=== PATIENT | male | born 1940 | race Caucasian/White ===

== ENCOUNTER 2016-08-13 15:01 | Emergency (ER) | payer OTHER ==
[~2016-08-13 15:01] MED LIST: ACYCLOVIR200 MG PO; ASPIRIN ADULT L81 M1 PO; HYDROCHLOROTHIA25 MG PO; LIPITOR40 MG PO; LISINOPRIL10 MG PO; METOPROLOL TART25 MG PO; OMEPRAZOLE20 M1; PROBENECID500 MG PO; RANITIDINE HCL150 MG PO
--- NOTE | 2016-08-13 15:27 | ED CLINICAL REPORT ---
Clinical Report - Physicians/Mid Levels [facility] [address] [place] [address] 08/13/2016 15:02 [id number] Time Seen: 15:19; initial patient contact, initial documentation, patient care assumed. Arrived- By private vehicle. Historian- patient. HISTORY OF PRESENT ILLNESS Chief Complaint: Injury to the right hand. The injury happened just prior to arrival. Occurred at home. The patient sustained a laceration from a sharp edge (electrical cord). Patient is not experiencing pain. Patient denies injury to the head or neck. No other injury. REVIEW OF SYSTEMS The patient sustained a laceration. No swelling, tingling, numbness, weakness or foreign body. All systems otherwise negative, except as recorded above. PAST HISTORY See nurses notes. PROBLEMS: Fractured Phalanx (Finger). Hypertension. --15:14 Jenny Rivas R.N. Angina [RuleOut]. --15:14 Jenny Rivas R.N. SOCIAL HISTORY Former smoker. No alcohol use or drug use. No recent travel. Is a local resident. FAMILY HISTORY No significant family medical history. ADDITIONAL NOTES The nursing notes have been reviewed with agreement regarding the chief complaint, HPI, ROS, PMH and patient medications and allergies. PHYSICAL EXAM Vital Signs: 08/13/2016 15:05 BP: 110/60. HR: 66. RR: 18. O2 saturation: 96%. Temp: 98.1 F. Pain level now: 0/10. Have been reviewed as normal and appear to be correct. Appearance: Alert. Oriented X3. No acute distress. Head: Head atraumatic. Eyes: Pupils equal, round and reactive to light. Eyes normal inspection. Respiratory: No respiratory distress. Skin: Skin warm and dry. Skin intact. Extremities: Hand injury present. Right thumb-index finger web space: superficial 0.5 cm laceration. Neurovascular intact distally. (superficial flap lac, no active bleeding, no closure needed). No erythema, tenderness, swelling, abrasion or ecchymosis. No puncture wound, foreign body or deformity. No limitation in movement. No wrist injury. Hand and wrist exam otherwise negative. Extremities otherwise negative. Neuro, Vascular and Tendons: Vascular status intact. Sensation intact. Motor intact. Tendon function intact. Neuro: Oriented X 3. No motor deficit. No sensory deficit. Note: isolated injury to hand. PROGRESS AND PROCEDURES Patient counseled in person regarding the patient's stable condition and diagnosis. 15:27. Differential Diagnosis: Other possible considerations: hand lac, avulsion, fb. Above considerations are based on history and physical exam. Differential diagnosis was discussed with patient. Disposition: Discharged home in good and improved condition (15:27). Condition: good and stable. CLINICAL IMPRESSION Single superficial laceration to the right hand.Treatment of laceration not delayed. No infection or foreign body present. INSTRUCTIONS Protect wound and keep wound area clean. Soak in warm soapy water twice daily. Apply bacitracin twice daily. Warnings: TETANUS: You were given a tetanus shot during your visit. Make a note for future reference. GENERAL WARNINGS: Return or contact your physician immediately if your condition worsens or changes unexpectedly, if not improving as expected, or if other problems arise. Specifically return if problem worsens. Follow-up: Follow up with your doctor in about three days as needed and for wound check. Call for an appointment. Summary of care provided to patient. Understanding of the discharge instructions verbalized by patient. (Electronically signed by Paula Rader A.R.N.P. 08/13/2016 17:34)
--- NOTE | 2016-08-13 15:27 | ED CLINICAL REPORT ---
Clinical Report - Physicians/Mid Levels [facility] [address] [place] [address] 08/13/2016 15:02 [id number] Time Seen: 15:19; initial patient contact, initial documentation, patient care assumed. Arrived- By private vehicle. Historian- patient. HISTORY OF PRESENT ILLNESS Chief Complaint: Injury to the right hand. The injury happened just prior to arrival. Occurred at home. The patient sustained a laceration from a sharp edge (electrical cord). Patient is not experiencing pain. Patient denies injury to the head or neck. No other injury. REVIEW OF SYSTEMS The patient sustained a laceration. No swelling, tingling, numbness, weakness or foreign body. All systems otherwise negative, except as recorded above. PAST HISTORY See nurses notes. PROBLEMS: Fractured Phalanx (Finger). Hypertension. --15:14 Jenny Rivas R.N. Angina [RuleOut]. --15:14 Jenny Rivas R.N. SOCIAL HISTORY Former smoker. No alcohol use or drug use. No recent travel. Is a local resident. FAMILY HISTORY No significant family medical history. ADDITIONAL NOTES The nursing notes have been reviewed with agreement regarding the chief complaint, HPI, ROS, PMH and patient medications and allergies. PHYSICAL EXAM Vital Signs: 08/13/2016 15:05 BP: 110/60. HR: 66. RR: 18. O2 saturation: 96%. Temp: 98.1 F. Pain level now: 0/10. Have been reviewed as normal and appear to be correct. Appearance: Alert. Oriented X3. No acute distress. Head: Head atraumatic. Eyes: Pupils equal, round and reactive to light. Eyes normal inspection. Respiratory: No respiratory distress. Skin: Skin warm and dry. Skin intact. Extremities: Hand injury present. Right thumb-index finger web space: superficial 0.5 cm laceration. Neurovascular intact distally. (superficial flap lac, no active bleeding, no closure needed). No erythema, tenderness, swelling, abrasion or ecchymosis. No puncture wound, foreign body or deformity. No limitation in movement. No wrist injury. Hand and wrist exam otherwise negative. Extremities otherwise negative. Neuro, Vascular and Tendons: Vascular status intact. Sensation intact. Motor intact. Tendon function intact. Neuro: Oriented X 3. No motor deficit. No sensory deficit. Note: isolated injury to hand. PROGRESS AND PROCEDURES Patient counseled in person regarding the patient's stable condition and diagnosis. 15:27. Differential Diagnosis: Other possible considerations: hand lac, avulsion, fb. Above considerations are based on history and physical exam. Differential diagnosis was discussed with patient. Disposition: Discharged home in good and improved condition (15:27). Condition: good and stable. CLINICAL IMPRESSION Single superficial laceration to the right hand.Treatment of laceration not delayed. No infection or foreign body present. INSTRUCTIONS Protect wound and keep wound area clean. Soak in warm soapy water twice daily. Apply bacitracin twice daily. Warnings: TETANUS: You were given a tetanus shot during your visit. Make a note for future reference. GENERAL WARNINGS: Return or contact your physician immediately if your condition worsens or changes unexpectedly, if not improving as expected, or if other problems arise. Specifically return if problem worsens. Follow-up: Follow up with your doctor in about three days as needed and for wound check. Call for an appointment. Summary of care provided to patient. Understanding of the discharge instructions verbalized by patient. (Electronically signed by Paula Rader A.R.N.P. 08/13/2016 17:34)
--- NOTE | 2016-08-13 15:27 | ED ORDER SUMMARY ---
..... Patient: ISACC SCOTT OrderSheet [facility] VisitID: [id number] [address] [place] [address] 76y, M Registration Date/Time: 08/13/2016 ORDER SHEET Weight: 67.1 kg (stated) Allergies: No Known Drug Allergy GENERAL ORDERS: MEDICATION ORDERS: Ptyijmo-Jpxnyp-Fuxyc Pertussis IM 0.5 mL (NOW, per protocol) (15:24 08/13/2016 DDean R.N. per protocol) (15:26 DDean R.N.) IV FLUIDS: ORDER SHEET NOTES: [Electronically signed by Jenny Rivas R.N. (16:03 08/13/2016)] [Electronically signed by Paula Rader (17:34 08/13/2016)] [Electronically locked/signed by Jenny Rivas R.N. (16:03 08/13/2016)]
--- NOTE | 2016-08-13 15:27 | ED NURSING NOTES ---
Clinical Report - Nurses [facility] [address] [place] [address] 08/13/2016 15:02 [id number] TRI[facility] Triage time 1505. Acuity: LEVEL 4. Chief Complaint: INJURY TO RIGHT HAND. KENNY COMA SCORE: [place] Coma Scale: 15- eyes open spontaneously (4); best verbal response- oriented x 4 (5); best motor response- obeys commands (6). --15:15 Jenny Rivas R.N. 15:05 08/13/16. BP: 110/60. HR: 66. RR: 18. O2 saturation: 96%. Temp: 98.1 F. Pain level now: 0/10. --15:15 Jenny Rivas R.N. Weight: 67.1 kg stated. Height/Length: 70 inches Per Patient. BMI: 21.2. --15:11 Jenny Rivas R.N. Medications Aspirin Oral (Tablet Chewable 81 mg) 1 tablet. Atorvastatin Calcium Oral. Hydrochlorothiazide Oral 25 mg, daily. Imdur Oral. Isosorbide Mononitrate ER Oral 30 mg, daily. Lisinopril Oral 40 mg, daily. Metoclopramide HCl Oral 25 mg, 2x a day. Nitroglycerin Translingual (Solution 0.4 mg/spray), as needed. Probenecid Oral (Tablet 500 mg) 1 tablet, 2x a day. Ranitidine HCl Oral 150 mg, daily. --16:03 Jenny Rivas R.N. Allergies No Known Drug Allergy. --15:12 Jenny Rivas R.N. History Arrived by private vehicle. Historian: patient. Unaccompanied. Primary physician (scott). This occurred just prior to arrival. He sustained a laceration (from electrical cord). ( pt has 1/2 cm flap lac to soft tissue/webbing between thumb and index finger on rt hand). PAST MEDICAL HX: Tetanus status: unknown. SURGERY HX: Right hip surgery. SOCIAL HX: Smoker- current status unknown (quit 30 years ago , was a 1ppd smoker for 10 years). --15:15 Jenny Rivas R.N. PROBLEMS: Fractured Phalanx (Finger). Hypertension. --15:14 Jenny Rivas R.N. Angina [RuleOut]. --15:14 Jenny Rivas R.N. Interventions ID band on patient. To treatment room. --15:15 Jenny Rivas R.N. PHYSICAL ASSESSMENT 15:05. Ambulatory to room. GENERAL / NEURO / PSYCH: Oriented X 4. Alert. Appears in no acute distress. EXTREMITIES: Capillary refill is less than 2 seconds in the extremities. Extremity pulses are within normal limits. Extremities exhibit normal ROM. Neuro-vascular status intact to the extremity. Right hand web space: superficial 0.5 cm laceration with controlled bleeding (wound betweel thumb and index finger on webbing of hand). SKIN: Skin intact. Skin is warm and dry. --16:02 Jenny Rivas R.N. NURSING PROGRESS NOTES 15:05. Reassurance given. Patient identifiers checked. Call light placed in reach. Side rails up. Bed placed in lowest position. Patient ready for evaluation- chart flagged. --15:16 Jenny Rivas R.N. 15:19 08/13/2016 [id number] PERTUSSIS IM 0.5 mL given. (Lot#: [id number], expiration date: 02/05/2018, Corporate Safety Coordinator: [employer]). Given in the right deltoid. Vaccine information statement provided to the patient. --15:26 Jenny Rivas R.N. 15:25. ( ERNP in to evaluate pt, after talking w pt, it was agreed that he could go home and put own 'waterproof dressing' on wound). --15:36 Jenny Rivas R.N. DISPOSITION / DISCHARGE 15:30. Condition at departure: unchanged and stable. No learning barriers present. Discharge instructions provided and reviewed with the patient. Reviewed medication(s) (tylenol or motin as needed). Reviewed wound care instructions. Patient verbalized understanding. Written instructions provided in German. The patient was discharged home and unaccompanied at time of discharge. He left the Emergency Department ambulatory and via private vehicle. Patient driving. --15:37 Jenny Rivas R.N. 15:26 08/13/16. BP: deferred. HR: deferred. RR: deferred. O2 saturation: deferred. Temp: deferred. Pain level now: 0/10. --15:37 Jenny Rivas R.N. Locked/Released at 08/13/2016 16:03 by Jenny Rivas R.N.
--- NOTE | 2016-08-13 15:27 | ED ORDER SUMMARY ---
..... Patient: ISACC SCOTT OrderSheet [facility] VisitID: [id number] [address] [place] [address] 76y, M Registration Date/Time: 08/13/2016 ORDER SHEET Weight: 67.1 kg (stated) Allergies: No Known Drug Allergy GENERAL ORDERS: MEDICATION ORDERS: Qkcrupr-Kbrrev-Cnooz Pertussis IM 0.5 mL (NOW, per protocol) (15:24 08/13/2016 DDean R.N. per protocol) (15:26 DDean R.N.) IV FLUIDS: ORDER SHEET NOTES: [Electronically signed by Jenny Rivas R.N. (16:03 08/13/2016)] [Electronically signed by Paula Rader (17:34 08/13/2016)] [Electronically locked/signed by Jenny Rivas R.N. (16:03 08/13/2016)]
--- NOTE | 2016-08-13 15:27 | ED NURSING NOTES ---
Clinical Report - Nurses [facility] [address] [place] [address] 08/13/2016 15:02 [id number] TRI[facility] Triage time 1505. Acuity: LEVEL 4. Chief Complaint: INJURY TO RIGHT HAND. KENNY COMA SCORE: [place] Coma Scale: 15- eyes open spontaneously (4); best verbal response- oriented x 4 (5); best motor response- obeys commands (6). --15:15 Jenny Rivas R.N. 15:05 08/13/16. BP: 110/60. HR: 66. RR: 18. O2 saturation: 96%. Temp: 98.1 F. Pain level now: 0/10. --15:15 Jenny Rivas R.N. Weight: 67.1 kg stated. Height/Length: 70 inches Per Patient. BMI: 21.2. --15:11 Jenny Rivas R.N. Medications Aspirin Oral (Tablet Chewable 81 mg) 1 tablet. Atorvastatin Calcium Oral. Hydrochlorothiazide Oral 25 mg, daily. Imdur Oral. Isosorbide Mononitrate ER Oral 30 mg, daily. Lisinopril Oral 40 mg, daily. Metoclopramide HCl Oral 25 mg, 2x a day. Nitroglycerin Translingual (Solution 0.4 mg/spray), as needed. Probenecid Oral (Tablet 500 mg) 1 tablet, 2x a day. Ranitidine HCl Oral 150 mg, daily. --16:03 Jenny Rivas R.N. Allergies No Known Drug Allergy. --15:12 Jenny Rivas R.N. History Arrived by private vehicle. Historian: patient. Unaccompanied. Primary physician (scott). This occurred just prior to arrival. He sustained a laceration (from electrical cord). ( pt has 1/2 cm flap lac to soft tissue/webbing between thumb and index finger on rt hand). PAST MEDICAL HX: Tetanus status: unknown. SURGERY HX: Right hip surgery. SOCIAL HX: Smoker- current status unknown (quit 30 years ago , was a 1ppd smoker for 10 years). --15:15 Jenny Rivas R.N. PROBLEMS: Fractured Phalanx (Finger). Hypertension. --15:14 Jenny Rivas R.N. Angina [RuleOut]. --15:14 Jenny Rivas R.N. Interventions ID band on patient. To treatment room. --15:15 Jenny Rivas R.N. PHYSICAL ASSESSMENT 15:05. Ambulatory to room. GENERAL / NEURO / PSYCH: Oriented X 4. Alert. Appears in no acute distress. EXTREMITIES: Capillary refill is less than 2 seconds in the extremities. Extremity pulses are within normal limits. Extremities exhibit normal ROM. Neuro-vascular status intact to the extremity. Right hand web space: superficial 0.5 cm laceration with controlled bleeding (wound betweel thumb and index finger on webbing of hand). SKIN: Skin intact. Skin is warm and dry. --16:02 Jenny Rivas R.N. NURSING PROGRESS NOTES 15:05. Reassurance given. Patient identifiers checked. Call light placed in reach. Side rails up. Bed placed in lowest position. Patient ready for evaluation- chart flagged. --15:16 Jenny Rivas R.N. 15:19 08/13/2016 [id number] PERTUSSIS IM 0.5 mL given. (Lot#: [id number], expiration date: 02/05/2018, [employer]communications Support: [employer]). Given in the right deltoid. Vaccine information statement provided to the patient. --15:26 Jenny Rivas R.N. 15:25. ( ERNP in to evaluate pt, after talking w pt, it was agreed that he could go home and put own 'waterproof dressing' on wound). --15:36 Jenny Rivas R.N. DISPOSITION / DISCHARGE 15:30. Condition at departure: unchanged and stable. No learning barriers present. Discharge instructions provided and reviewed with the patient. Reviewed medication(s) (tylenol or motin as needed). Reviewed wound care instructions. Patient verbalized understanding. Written instructions provided in [place]ian. The patient was discharged home and unaccompanied at time of discharge. He left the Emergency Department ambulatory and via private vehicle. Patient driving. --15:37 Jenny Rivas R.N. 15:26 08/13/16. BP: deferred. HR: deferred. RR: deferred. O2 saturation: deferred. Temp: deferred. Pain level now: 0/10. --15:37 Jenny Rivas R.N. Locked/Released at 08/13/2016 16:03 by Jenny Rivas R.N.
--- NOTE | 2016-08-13 17:35 | ED DISCHARGE INSTRUCTIONS ---
Patient: ISACC SCOTT General Instructions [facility] VisitID: [id number] [place] [address] 76y, M Registration Date/Time: 08/13/2016 Single superficial laceration to the right hand.Treatment of laceration not delayed. No infection or foreign body present. INSTRUCTIONS Protect wound and keep wound area clean. Soak in warm soapy water twice daily. Apply bacitracin twice daily. Warnings: TETANUS: You were given a tetanus shot during your visit. Make a note for future reference. GENERAL WARNINGS: Return or contact your physician immediately if your condition worsens or changes unexpectedly, if not improving as expected, or if other problems arise. Specifically return if problem worsens. Follow-up: Follow up with your doctor in about three days as needed and for wound check. Call for an appointment. Summary of care provided to patient. Understanding of the discharge instructions verbalized by patient. ADDITIONAL INFORMATION Laceration (All Closures) Alaceration is a cut through the skin. This will usually require stitches (sutures) or ruth ann if it is deep. Minor cuts may be treated with a surgical tape closure orskin glue. Home care The following guidelines will help you care for your laceration at home: Extremity, face, or trunk wounds Keep the wound clean and dry. If a bandage was applied and it becomes wet or dirty, replace it. Otherwise, leave it in place for the first 24 hours. If stitches or ruth ann were used, clean the wound daily. After removing the bandage, wash the area with soap and water. Use a wet cotton swab to loosen and remove any blood or crust that forms. The doctor may prescribe an antibiotic cream or ointment to prevent infection. Do not stop taking this medication until you have finished the prescribed course or the doctor tells you to stop. The doctor may also prescribe medications for pain. Follow the doctors instructions for taking these medications. You may remove the bandage to shower as usual after the first 24 hours, but do not soak the area in water (no swimming) until the stitches or ruth ann are removed. If surgical tape was used, keep the area clean and dry. If it becomes wet, blot it dry with a towel. If skin glue was used, do not scratch, rub, or pick at the adhesive film. Do not place tape directly over the film. Do not apply liquid, ointment, or creams to the wound while the film is in place. Do not clean the wound with peroxide and do not apply ointments. Avoid activities that cause heavy sweating until the film has fallen off. Protect the wound from prolonged exposure to sunlight or tanning lamps. You may shower as usual but do not soak the wound in water (no baths or swimming). The film will fall off by itself in 510 days. Scalp wounds During the first two days, you may carefully rinse your hair in the shower to remove blood, glass or dirt particles. After two days, you may shower and shampoo your hair normally. Do not soak your scalp in the tub or go swimming until the stitches or ruth ann have been removed. Talk with your doctor before applying any antibiotic ointment to the wound. Mouth wounds Eat soft foods to reduce pain. If the cut is inside of your mouth, clean by rinsing after each meal and at bedtime with a mixture of equal parts water and hydrogen peroxide (do not swallow!). Or, you can use a cotton swab to directly apply hydrogen peroxide onto the cut. Mouth wounds can be painful when eating. You may use an fizc-ciu-vdapfar local numbing solution for pain relief. If this is not available, you may use any numbing solution for teething babies. You may apply this directly to the sores with a cotton-tip swab or with your finger. Follow-up care Follow up with your health care provider. Most skin wounds heal within ten days. Mouth and facial wounds heal within five days. However, even with proper treatment, a wound infection may sometimes occur. Therefore, you should check the wound daily for signs of infection listed below. Stitches should be removed from the face within five days; stitches and ruth ann should be removed from other parts of the body within 714 days. If dissolving stitches were used in the mouth, these will fall out or dissolve without the need for removal. If tape closures were used, remove them yourself if they have not fallen off after 7 days. Ifskin glue was used, the film will fall off by itself in 510 days. When to seek medical care Get prompt medical attention if any of these occur: Bleeding not controlled by direct pressure Signs of infection, including increasing pain in the wound, increasing wound redness or swelling, or pus coming from the wound Fever of 100.4F (38C) or higher, or as directed by your health care provider Stitches or ruth ann come apart or fall out or surgical tape falls off before 7 days Wound edges re-open Laceration, Extremity (Sutures, [place], Or Tape) A laceration is a cut through the skin. This will usually require stitches (sutures) or ruth ann if it is deep. Minor cuts may be treated with surgical tape closures. Home care The following guidelines will help you care for your laceration at home: Keep the wound clean and dry. If a bandage was applied and it becomes wet or dirty, replace it. Otherwise, leave it in place for the first 24 hours, then change it once a day or as directed. If stitches or ruth ann were used, clean the wound daily: After removing the bandage, wash the area with soap and water. Use a wet cotton swab to loosen and remove any blood or crust that forms. After cleaning, keep the wound clean and dry. Talk with your doctor before applying any antibiotic ointment to the wound. Reapply the bandage. You may remove the bandage to shower as usual after the first 24 hours, but do not soak the area in water (no swimming) until the stitches or ruth ann are removed. If surgical tape closures were used, keep the area clean and dry. If it becomes wet, blot it dry with a towel. The doctor may prescribe an antibiotic cream or ointment to prevent infection. Do not stop taking this medication until you have finished the prescribed course or the doctor tells you to stop. The doctor may also prescribe medications for pain. Follow the doctors instructions for taking these medications. If you have chronic liver or kidney disease or ever had a stomach ulcer or GI bleeding, talk with your doctor before using these medicines. Follow-up care Follow up with your health care provider. Most skin wounds heal within ten days. However, an infection may sometimes occur despite proper treatment. Therefore, check the wound daily for the signs of infection listed below. Stitches and ruth ann should be removed within 714 days. If surgical tape closures were used, you may remove them after 10 days, if they have not fallen off by then. Notify your doctor if you notice persistent numbness or weakness in the injured extremity. (Note:A radiologist will review any X-rays that were taken. We will notify you of any new findings that may affect your care.) When to seek medical care Get prompt medical attention if any of these occur: Increasing pain in the wound Redness, swelling, or pus coming from the wound Fever of 100.4F (38C) or higher, or as directed by your health care provider If stitches or ruth ann come apart or fall out before your next appointment If the surgical tape closures fall off within seven days, or the wound edges re-open Bleeding not controlled by direct pressure Diphtheria Toxoid Adsorbed, Pertussis Vaccine, Acellular (Adsorbed), Tetanus Toxoid, Adsorbed Suspension for injection What is this medicine? DIPHTHERIA and TETANUS TOXOIDS; PERTUSSIS VACCINE (dif THEER ee uh and TET n us TOK soids; per TUS iss deshaunk SEEN) is used to prevent diphtheria, tetanus, and pertussis infections. How should I use this medicine? This vaccine is for injection into a muscle. It is given by a health certified social workers in health care. A copy of Vaccine Information Statements will be given before each vaccination. Read this sheet carefully each time. The sheet may change frequently. Talk to your occupational health specialist regarding the use of this vaccine in children. While the DTP vaccine may be given to children ages 6 weeks to 7 years and the Tdap vaccine may be given to children at least 10 years old, precautions do apply. What side effects may I notice from receiving this medicine? Side effects that you should report to your doctor or health certified social workers in health care as soon as possible: allergic reactions like skin rash, itching or hives, swelling of the face, lips, or tongue breathing problems fever of 103 degrees F or more flu-like symptoms inconsolable crying infection pain, tingling, numbness in the hands or feet seizures swelling of arm or leg that was injected unusually weak or tired Side effects that usually do not require immediate medical attention (report these side effects to your doctor or health certified social workers in health care if they continue or are bothersome): fussy, irritable loss of appetite fever of 102 degrees F or less pain, tenderness, redness, swelling, or a 'knot' at site where injected vomiting What may interact with this medicine? immune globulin medicines that suppress your immune function like adalimumab, anakinra, infliximab medicines to treat cancer medicines that treat or prevent blood clots like warfarin, enoxaparin, and dalteparin steroid medicines like prednisone or cortisone What if I miss a dose? It is important not to miss your dose. Call your doctor or health certified social workers in health care if you are unable to keep an appointment. Where should I keep my medicine? This drug is given in a hospital or clinic and will not be stored at home. What should I tell my health care provider before I take this medicine? They need to know if you have any of these conditions: blood disorders like hemophilia fever or infection immune system problems neurologic disease seizures an unusual or allergic reaction to vaccines, thimerosal, latex, other medicines, foods, dyes, or preservatives or trying to get breast-feeding What should I watch for while using this medicine? See your health care provider for all shots of this vaccine as directed. To have protection from infection, you must have 3 shots of this vaccine plus boosters as needed. Tell your doctor right away if you have any serious or unusual side effects after getting this vaccine. You have been given the following additional information: Laceration, All Laceration, Extrem (Suture, Staple, Or Tape) Diphtheria Toxoid Adsorbed, Pertussis Vaccine, Acellular (Adsorbed), Tetanus Toxoid, Adsorbed Suspension for injection (Electronically signed by Paula Rader A.R.N.P. 08/13/2016 17:34)
--- NOTE | 2016-08-13 17:35 | ED MAR SUMMARY ---
..... Medication Administration Record [facility] [address] [place] [address] Patient: ISACC SCOTT Visit ID: [id number] 76y, M Weight: 67.1 kg Height/Length: 70 in BMI: 21.2 ALLERGIES: No Known Drug Allergy Given 15:19 08/13/2016 Rob, Kassi Alvarado Medication Administered: [id number] PERTUSSIS [IM], Dose: 0.5 mL IM. Medication Ordered: Yodljfz-Yaljli-Qaqgv Pertussis IM 0.5 mL (NOW, per protocol).
--- NOTE | 2016-08-13 17:35 | ED MED RECONCILIATION SUMMARY ---
Patient: ISACC SCOTT Medication Reconciliation Report [facility] VisitID: [id number] [address] [place] [address] 76y, M Registration Date/Time: 08/13/2016 Weight: 67.1 kg Height/Length: 70 in. BMI: 21.2 ALLERGIES: No Known Drug Allergy The patient's Home Medications are listed below: THE FOLLOWING MEDICATIONS NEED TO BE RECONCILED: Aspirin Oral (81 mg) 1 tablet Atorvastatin Calcium Oral Hydrochlorothiazide Oral 25 mg, daily Imdur Oral Isosorbide Mononitrate ER Oral 30 mg, daily Lisinopril Oral 40 mg, daily Metoclopramide HCl Oral 25 mg, 2x a day Nitroglycerin Translingual (0.4 mg/spray) Probenecid Oral (500 mg) 1 tablet, 2x a day Ranitidine HCl Oral 150 mg, daily The source(s) of the original Home Medication information: Not obtained. The following Medications were given to the patient in the Emergency Department: [id number] PERTUSSIS [IM] IM 0.5 mL, administered: 08/13/2016 3:19:00 PM The following Medications were prescribed to the patient: None.
--- NOTE | 2016-08-13 17:35 | ED MED RECONCILIATION SUMMARY ---
Patient: ISACC SCOTT Medication Reconciliation Report [facility] VisitID: [id number] [address] [place] [address] 76y, M Registration Date/Time: 08/13/2016 Weight: 67.1 kg Height/Length: 70 in. BMI: 21.2 ALLERGIES: No Known Drug Allergy The patient's Home Medications are listed below: THE FOLLOWING MEDICATIONS NEED TO BE RECONCILED: Aspirin Oral (81 mg) 1 tablet Atorvastatin Calcium Oral Hydrochlorothiazide Oral 25 mg, daily Imdur Oral Isosorbide Mononitrate ER Oral 30 mg, daily Lisinopril Oral 40 mg, daily Metoclopramide HCl Oral 25 mg, 2x a day Nitroglycerin Translingual (0.4 mg/spray) Probenecid Oral (500 mg) 1 tablet, 2x a day Ranitidine HCl Oral 150 mg, daily The source(s) of the original Home Medication information: Not obtained. The following Medications were given to the patient in the Emergency Department: [id number] PERTUSSIS [IM] IM 0.5 mL, administered: 08/13/2016 3:19:00 PM The following Medications were prescribed to the patient: None.
--- NOTE | 2016-08-13 17:35 | ED MAR SUMMARY ---
..... Medication Administration Record [facility] [address] [place] [address] Patient: ISACC SCOTT Visit ID: [id number] 76y, M Weight: 67.1 kg Height/Length: 70 in BMI: 21.2 ALLERGIES: No Known Drug Allergy Given 15:19 08/13/2016 Rob, Kassi Alvarado Medication Administered: [id number]-FESKRZ-CNEZO PERTUSSIS [IM], Dose: 0.5 mL IM. Medication Ordered: Tjesldg-Rwbptj-Kcbqk Pertussis IM 0.5 mL (NOW, per protocol).
== END 2016-08-13 15:30 | disposition home or self-care (01) ==
LOC: ED SRH 15:01
DX: S61.411A Laceration without foreign body of right hand, initial encounter (principal); W45.8XXA Other foreign body or object entering through skin, initial encounter; Y92.009 Unspecified place in unspecified non-institutional (private) residence as the place of occurrence of the external cause; Y93.9 Activity, unspecified; Y99.9 Unspecified external cause status; I10 Essential (primary) hypertension; Z23 Encounter for immunization; Z79.82 Long term (current) use of aspirin; Z79.899 Other long term (current) drug therapy